=== PATIENT | female | born 1940 | race Caucasian/White ===

== ENCOUNTER → 2017-08-17 | Outpatient (CLI) | payer OTHER, BC | LOC: RAD 10:23 | DX: Z12.31 Encounter for screening mammogram for malignant neoplasm of breast (principal) ==

== ENCOUNTER → 2018-08-30 | Outpatient (CLI) | payer OTHER, BC | LOC: RAD 02:49 | DX: Z12.31 Encounter for screening mammogram for malignant neoplasm of breast (principal) ==